=== PATIENT | male | born 1960 | race Caucasian/White ===

== ENCOUNTER 2017-12-04 10:32 | Outpatient (CLI) | payer OTHER | END 2017-12-04 10:33 | disposition home or self-care (01) | LOC: CTENTCT 10:32 | PROVIDERS: ATTEND Specialist | DX: J32.9 Chronic sinusitis, unspecified (principal) | CPT/HCPCS: 70486 ==

== ENCOUNTER → 2018-01-28 | Day surgery (SDC) | payer OTHER ==
[~2018-01-28] MED LIST: Bacitracin Zinc Ointment 30 gm TUBE ONE; Fentanyl 100 MCG/2 ML VIAL ONE; HYDROcodone/Acetaminophen 5/325 mg Tablet ONE; Lidocaine 1% w/Epinephrine 1:100K 30 ML VIAL ONE; Midazolam HCl 2 mg/2 ml Vial ONE; Oxymetazoline HCl 0.05% ( 15 ML ) ONE; Scopolamine 1.5 mg/72 hour Patch ONE
--- NOTE | 2018-01-28 15:57 | OP ---
PREOPERATIVE DIAGNOSES: Chronic sinusitis, chronic sphenoid sinusitis, nasal polyposis, hypertrophic inferior turbinates, and deviated septum. POSTOPERATIVE DIAGNOSES: Chronic sinusitis, chronic sphenoid sinusitis, nasal polyposis, hypertrophi c inferior turbinates, and deviated septum. PROCEDURES PERFORMED: 1. Septoplasty. 2. Bilateral nasal endoscopy with maxillary antrostomy with removal of tissue. 3. Bilateral nasal endoscopy with total ethmoidectomy. 4. Bilateral nasal endoscopy with frontal sinusotomy. 5. Bilateral nasal endoscopy with sphenoidotomy with removal of tissue and stereotactic landmark mitchell ge guidance. PROCEDURE IN DETAIL: After consent was obtained, the patient was identified, brought to the operatin g room, and placed on the operating room table in the supine position. Consent was obtained, notifyi ng the patient of the possibility of additional infections, bleeding, brain injury, and eye/orbital i njury. The patient was placed on the operating room table, and general endotracheal anesthesia and intravenous access was obtained. The patient was then positioned, prepped and draped for endoscopic sinus surgery. Nasal preparation included trimming nasal vestibular hairs and spraying in topical Af rin. We then placed Afrin topical solution on nasal pledgets and strategically located them intranas ally. The perinasal mucosa was injected with 1% lidocaine with 1:100,000 epinephrine in the submucop erichondrial plane of the septum, lateral nasal wall, and anterior to the uncinate. The patient was then prepped and draped in a sterile fashion and positioned for endoscopic sinus surgery. (Endoscopic Sinus Surgery) With the 0-degree endoscope, the patient underwent systematic nasal endoscopy. There were no suspici ous internasal masses or lesions identified. We then focused our attention to the osteomeatal comple x region under the middle turbinate. (Jaquelin Bullosa) The jaquelin bullosa was identified and entered with a sickle blade. The lateral aspect of the jaquelin bullosa was meticulously resected while leaving the medial most aspect t o form the new middle turbinate. Attention was made not to violate the mucosa. The straight biting punches and micro-debrider were used to remove shrouds of mucosa and bony debris. (Maxillary Antrostomy) The uncinate was then identified and the extent of the uncinate was appreciated by out-fracturing the uncinate with the ball-tip probe. We then used the sickle blade to disarticulate the uncinate from the lateral nasal wall. This was then removed with straight biting and upbiting punches with the remaining shrouds of mucosa and bony septum removed with the micro-debr ider. The natural os of the maxillary sinus was then identified and enlarged with the maxillary punc hes and back biting forceps. (Total Ethmoidectomy) The anterior face of the ethmoid bulla was entered and with the micro-debrider, dissection continued posteriorly to the ground lamella. The limits of dissection inc luded the insertion of the middle turbinate, medial orbital wall, and base of skull. We similarly id entified the frontal recess and removed shrouds of bone and debris in that region to obtain patency i nto the agger nasi region and frontal recess. We then entered the ground lamella and its anteroinfer ior aspect and proceeded posteriorly, opening the posterior ethmoid air-cell system. Again, the limi ts of dissection included the base of skull and medial orbital wall. (Sphenoidotomy) The anterior face of the sphenoid was identified and entered in its extreme anteroinferior aspect. A sphenoid punch was then used to enlarge the sphenoidotomy and no injury to the optic nerve or internal carotid artery occurred. (Outfracture of the Inferior Turbinates) The inferior turbinates were visualized under endoscopic visualization and outfractured with the elevator. The inferolateral edge of the inferior turbinate was then cauterized along its length with the suction cautery without difficulty. (Outfracture & Cautery of the Inferior Turbinates) The inferior turbinates were visualized with a 0-degree endoscope and outfractured with a [place] elevator. The inferior medial aspect was cauterized with the electrocauter y. Hemostasis was obtained . After adequate airway was established, we turned our attention to the contralateral side and used a similar procedure. Again, a [place] elevator was used to outfracture inf erior turbinates under endoscopic visualization. With a suction cautery, the free inferior medial as pect was cauterized under direct visualization along the length of the inferior turbinate. (Septoplasty) After local anesthesia was infiltrated into the submucoperichondrial plane, a standard Merrill incisi on was made with a #15 blade down to the level of the septal cartilage. The caudal elevator was used to elevate the mucoperichondrium from the underlying cartilage. We then proceeded beyond the bony c artilaginous junction and elevated the bony periosteum as well. Great attention was paid to the spur to prevent rent formation in the septal flap. A transcartilaginous incision was then made, while pre serving an adequate dorsal and caudal cartilaginous strut for tip support. The deformed cartilage wa s removed and disarticulated from the bony cartilaginous junction and maxillary crest. This was plac ed in saline and would later be crushed and returned to the mucoperichondrial envelope. We then elev ated the contralateral periosteum from the bony cartilaginous region and removed the deformed portion s of the bone and bony spurs. The cartilage was then crushed and placed back into the mucoperichondr ial envelope and the mucosa was re-approximated with a quilting stitch composed of rapidly absorbent gut suture. The Merrill incision was also closed with interrupted gut suture. At the completion of the case, Zamudio splints were placed and suture secured to the caudal septum. At this point, we then turned our attention to the contralateral side and proceeded with endoscopic sinus surgery. At the completion of the case, Rice keel splints were placed in the ethmoid cavities after the ethmoidectomy. There were no complications. The patient tolerated the procedure well and was discharged to the recovery room in stable condition prior to return to the preoperative Day Stay with ultimate discharge home. Prescriptions for pain medication and antibiotics were provid ed. The patient received intramuscular Depo-Medrol during the case.
== END ==
LOC: SDC 11:31
PROVIDERS: ATTEND Specialist
PROC: 09BS8ZZ Excision of Right Frontal Sinus, Via Natural or Artificial Opening Endoscopic (ICD-10-PCS; principal; 2018-01-28)
PROC: 09TV8ZZ Resection of Left Ethmoid Sinus, Via Natural or Artificial Opening Endoscopic (ICD-10-PCS; principal; 2018-01-28)
PROC: 09SL8ZZ Reposition Nasal Turbinate, Via Natural or Artificial Opening Endoscopic (ICD-10-PCS; principal; 2018-01-28)
PROC: 09TL8ZZ Resection of Nasal Turbinate, Via Natural or Artificial Opening Endoscopic (ICD-10-PCS; principal; 2018-01-28)
PROC: 09SM0ZZ Reposition Nasal Septum, Open Approach (ICD-10-PCS; principal; 2018-01-28)
PROC: 099R8ZZ Drainage of Left Maxillary Sinus, Via Natural or Artificial Opening Endoscopic (ICD-10-PCS; principal; 2018-01-28)
PROC: 09BX8ZZ Excision of Left Sphenoid Sinus, Via Natural or Artificial Opening Endoscopic (ICD-10-PCS; principal; 2018-01-28)
PROC: 09TU8ZZ Resection of Right Ethmoid Sinus, Via Natural or Artificial Opening Endoscopic (ICD-10-PCS; principal; 2018-01-28)
PROC: 09BW8ZZ Excision of Right Sphenoid Sinus, Via Natural or Artificial Opening Endoscopic (ICD-10-PCS; principal; 2018-01-28)
PROC: 09BT8ZZ Excision of Left Frontal Sinus, Via Natural or Artificial Opening Endoscopic (ICD-10-PCS; principal; 2018-01-28)
PROC: 099Q8ZZ Drainage of Right Maxillary Sinus, Via Natural or Artificial Opening Endoscopic (ICD-10-PCS; principal; 2018-01-28)
DX: J32.3 Chronic sphenoidal sinusitis (principal); J33.9 Nasal polyp, unspecified; J34.3 Hypertrophy of nasal turbinates; J34.2 Deviated nasal septum; J31.0 Chronic rhinitis; Z79.51 Long term (current) use of inhaled steroids; Z79.82 Long term (current) use of aspirin; Z79.2 Long term (current) use of antibiotics; Z79.899 Other long term (current) drug therapy
CPT/HCPCS: 93005; 93010; J2001; J2250; J3010

== ENCOUNTER 2021-04-29 16:19 | Outpatient (CLI) | payer OTHER | END 2021-04-29 16:20 | disposition home or self-care (01) | LOC: LABBT 16:19 | PROVIDERS: ATTEND Urology | DX: Z01.818 Encounter for other preprocedural examination (principal); Z20.822 Contact with and (suspected) exposure to COVID-19 | CPT/HCPCS: 80048; 81001; 85027; 85610; 85730; 86850; 86900; 86901; 87086; 93005; 93010; U0003; U0005 ==

== ENCOUNTER 2021-05-02 07:38 | Day surgery (SDC) | payer OTHER ==
[2021-04-29 17:31] LABS: Hemoglobin 14.9 g/dL (13.5-17.5); Mean Corpuscular HGB CONC 32.7 g/dL (32.0-36.0); Mean Corpuscular Hemoglobin 28.3 pg (27.0-33.0); Mean Corpuscular Volume 86.5 fl (81.2-95.1); Mean Platelet Volume 10.4 fl (7.4-10.4); Platelet Count 172 10x3/uL (150-450); RBC Distribution Width 13.6 % (11.5-14.5); Red Blood Cell (RBC) Count 5.26 10x6/uL (4.32-5.72); White Blood Cell (WBC) Count 5.5 10x3/uL (3.5-10.5)
[2021-04-29 17:36] LABS: Bilirubin Neg (Negative); Blood, Urine 250 (Negative); Clarity Cloudy (Clear); Glucose, Urine (Dipstick) Normal (Negative); Ketone, Urine Negative (Negative); Leukocyte Negative (Negative); Nitrite Negative (Negative); Protein, Urine (Dipstick) 30 mg/dl (Neg-Trace); Specific Gravity, Urine 1.025 (1.002-1.036); Urobilinogen Normal mg/dL (Less than 2)
[2021-04-29 19:10] LABS: INR-International Normal Ratio 0.9; PTT 22.9 sec (22.0-33.0); Prothrombin Time 10.4 sec (9.5-12.1)
[2021-04-29 19:12] LABS: Anion Gap 13 mmol/L (10-20); BUN (Urea Nitrogen) 26 mg/dL (8.4-25.7); Calc. Creatinine Clearance 0 mL/min (70-130); Calcium 10.1 mg/dL (7.8-10.44); Carbon Dioxide 25 mmol/L (23-31); Chloride 108 mmol/L (98-107); Glucose 82 mg/dL (80-115); Potassium 4.1 mmol/L (3.5-5.1); Sodium 142 mmol/L (136-145)
[2021-04-29 19:38] LABS: RBC/HPF 21-50 HPF (0-3)
[2021-04-29 19:39] LABS: Mucous/LPF 2+ LPF (<2+); Squamous Epithelial 0-3 HPF (0-3)
[2021-04-29 19:40] LABS: Bacteria/HPF Rare-Few HPF (None Seen)
[2021-04-30 09:01] LABS: SARS-CoV-2 PCR by NAA Not Detected (NotDetected)
[2021-05-01 10:33] VITALS: BMI 25.1
[2021-05-02] MEDS ORDERED: Gentamicin Sulfate 80 MG in Premix Bag 1 BAG IVPB SCH (08:45)
[2021-05-02] MEDS ORDERED: Scopolamine 1.5 mg/72 hour Patch ONE (09:21)
[2021-05-02] MEDS ORDERED: Fentanyl 100 MCG/2 ML VIAL ONE ×8 (10:49→19:06)
[2021-05-02] MEDS ORDERED: Midazolam HCl 2 mg/2 ml Vial ONE (14:20)
[2021-05-02] MEDS ORDERED: Lidocaine 1% PF 5 ML VIAL ONE (14:48)
[2021-05-02] MEDS ORDERED: Rocuronium Bromide 10 MG/ML (10ML VIAL) ONE (14:48)
[2021-05-02] MEDS ORDERED: Ondansetron PF 4 MG/2 ML Vial ONE ×2 (14:48→18:23)
[2021-05-02] MEDS ORDERED: Glycopyrrolate 0.2 MG/ML 5 ML SYRINGE ONE (14:48)
[2021-05-02] MEDS ORDERED: ePHEDrine 50 MG/ML VIAL ONE (14:48)
[2021-05-02] MEDS ORDERED: Dexamethasone 20 MG/5 ML VIAL ONE (14:48)
[2021-05-02] MEDS ORDERED: PROPOFOL 200 MG/20 ML VIAL ONE (14:48)
[2021-05-02] MEDS ORDERED: Bupivacaine 0.25% HCL 30 ML VIAL ONE (14:56)
[2021-05-02] MEDS ORDERED: Iothalamate Meglumine 60% 50 ML VIAL FS ONE ×2 (15:34→15:55)
[2021-05-02] MEDS ORDERED: SUGAMMADEX SODIUM 200 MG/2 ML VIAL ONE (15:37)
[2021-05-02] MEDS ORDERED: Phenazopyridine HCl 100 MG TAB ONE (17:44)
[2021-05-02] MEDS ORDERED: Meperidine HCl/PF 25 MG/ML VIAL ONE (18:01)
[2021-05-02] MEDS ORDERED: Albuterol Sulfate 1.25 MG/3 ML NEB ONE (18:44)
[2021-05-02] MEDS ORDERED: Metoclopramide HCl 10 MG/2 ML VIAL ONE (19:13)
== END 2021-05-02 20:25 | disposition home or self-care (01) ==
LOC: SDC 07:38
PROVIDERS: ATTEND Urology
PROC: 0TJ53ZZ Inspection of Kidney, Percutaneous Approach (ICD-10-PCS; principal; 2021-05-02)
PROC: BT1FZZZ Fluoroscopy of Left Kidney, Ureter and Bladder (ICD-10-PCS; principal; 2021-05-02)
DX: N20.0 Calculus of kidney (principal); R35.1 Nocturia; D23.9 Other benign neoplasm of skin, unspecified; K40.90 Unilateral inguinal hernia, without obstruction or gangrene, not specified as recurrent; Z53.8 Procedure and treatment not carried out for other reasons; Z79.82 Long term (current) use of aspirin; Z79.899 Other long term (current) drug therapy; Z87.891 Personal history of nicotine dependence
CPT/HCPCS: 50430; 50437; 76000; 80048; 81001; 85027; 85610; 85730; 86850; 86900; 86901; 87086; J0690; J1100; J1580; J2175; J2250; J2405; J2704; J2765; J3010; J3490; Q9961; S0020; U0003; U0005

== ENCOUNTER 2021-05-20 12:43 | Outpatient (CLI) | payer OTHER ==
[2021-05-20 14:34] LABS: INR-International Normal Ratio 0.9; PTT 23.9 sec (22.0-33.0); Prothrombin Time 10.5 sec (9.5-12.1)
[2021-05-20 14:36] LABS: Hemoglobin 15.3 g/dL (13.5-17.5); Mean Corpuscular HGB CONC 34.2 g/dL (32.0-36.0); Mean Corpuscular Hemoglobin 28.9 pg (27.0-33.0); Mean Corpuscular Volume 84.5 fl (81.2-95.1); Mean Platelet Volume 10.1 fl (7.4-10.4); Platelet Count 178 10x3/uL (150-450); RBC Distribution Width 13.1 % (11.5-14.5); White Blood Cell (WBC) Count 5.9 10x3/uL (3.5-10.5)
[2021-05-20 14:37] LABS: Anion Gap 12 mmol/L (10-20); BUN (Urea Nitrogen) 18 mg/dL (8.4-25.7); Calc. Creatinine Clearance 0 mL/min (70-130); Calcium 9.8 mg/dL (7.8-10.44); Carbon Dioxide 27 mmol/L (23-31); Chloride 106 mmol/L (98-107); Glucose 94 mg/dL (80-115); Potassium 4.2 mmol/L (3.5-5.1); Sodium 141 mmol/L (136-145)
[2021-05-20 14:56] LABS: Bilirubin Neg (Negative); Blood, Urine 150 (Negative); Clarity Clear (Clear); Glucose, Urine (Dipstick) Normal (Negative); Ketone, Urine Negative (Negative); Leukocyte Negative (Negative); Nitrite Negative (Negative); Protein, Urine (Dipstick) 15 mg/dl (Neg-Trace); Specific Gravity, Urine 1.025 (1.002-1.036); Urobilinogen Normal mg/dL (Less than 2)
[2021-05-20 15:19] LABS: WBC/HPF 0-3 HPF (0-3)
[2021-05-20 15:20] LABS: Bacteria/HPF Rare-Few HPF (None Seen); Mucous/LPF Few LPF (<2+); Squamous Epithelial None Seen HPF (0-3)
[2021-05-21 14:36] LABS: SARS-CoV-2 PCR by NAA Not Detected (NotDetected)
== END 2021-05-20 12:44 | disposition home or self-care (01) ==
LOC: LABBT 12:43
PROVIDERS: ATTEND Family Medicine
DX: Z01.812 Encounter for preprocedural laboratory examination (principal); N20.0 Calculus of kidney; Z20.822 Contact with and (suspected) exposure to COVID-19
CPT/HCPCS: 80048; 81001; 85027; 85610; 85730; 87086; U0003; U0005

== ENCOUNTER 2021-05-23 06:39 | Day surgery (SDC) | payer OTHER ==
[2021-05-22 11:55] VITALS: BMI 25.1
[2021-05-23] MEDS ORDERED: Levofloxacin 500 mg/D5W 100 ml Premix Bag ONE (07:05)
[2021-05-23] MEDS ORDERED: Scopolamine 1.5 mg/72 hour Patch ONE (08:10)
[2021-05-23] MEDS ORDERED: Fentanyl 100 MCG/2 ML VIAL ONE ×3 (08:10→13:02)
[2021-05-23] MEDS ORDERED: Iothalamate Meglumine 60% 50 ML VIAL FS ONE (08:48)
[2021-05-23] MEDS ORDERED: B & O 30 MG SUPP ONE (08:48)
[2021-05-23] MEDS ORDERED: PROPOFOL 200 MG/20 ML VIAL ONE (11:00)
[2021-05-23] MEDS ORDERED: Rocuronium Bromide 10 MG/ML (10ML VIAL) ONE (11:00)
[2021-05-23] MEDS ORDERED: Ondansetron PF 4 MG/2 ML Vial ONE (11:00)
[2021-05-23] MEDS ORDERED: PHENYLEPHRINE-NS 100 MCG/ML 10 ML SYRINGE ONE (11:00)
[2021-05-23] MEDS ORDERED: Lidocaine 1% PF 5 ML VIAL ONE (11:00)
[2021-05-23] MEDS ORDERED: Dexamethasone 20 MG/5 ML VIAL ONE (11:00)
[2021-05-23] MEDS ORDERED: Midazolam HCl 2 mg/2 ml Vial ONE (11:07)
[2021-05-23] MEDS ORDERED: Phenazopyridine HCl 100 MG TAB ONE (13:33)
[2021-05-23] MEDS ORDERED: Oxybutynin 5 MG TAB ONE (13:33)
[2021-05-23] MEDS ORDERED: HYDROcodone/Acetaminophen 5/325 mg Tablet ONE ×2 (14:12→15:22)
[2021-05-23] MEDS ORDERED: Ondansetron ODT 4 MG TAB ONE (14:12)
== END 2021-05-23 15:45 | disposition home or self-care (01) ==
LOC: SDC 06:39
PROVIDERS: ATTEND Urology
PROC: 0TC48ZZ Extirpation of Matter from Left Kidney Pelvis, Via Natural or Artificial Opening Endoscopic (ICD-10-PCS; principal; 2021-05-23)
PROC: 0TC78ZZ Extirpation of Matter from Left Ureter, Via Natural or Artificial Opening Endoscopic (ICD-10-PCS; principal; 2021-05-23)
PROC: 0T778DZ Dilation of Left Ureter with Intraluminal Device, Via Natural or Artificial Opening Endoscopic (ICD-10-PCS; principal; 2021-05-23)
DX: N20.2 Calculus of kidney with calculus of ureter (principal); Z98.890 Other specified postprocedural states; Z79.82 Long term (current) use of aspirin; Z79.899 Other long term (current) drug therapy; Z87.891 Personal history of nicotine dependence
CPT/HCPCS: 76000; 82365; 88300; C2617; J1100; J1956; J2250; J2405; J2704; J3010; Q0162; Q9961-U8

== ENCOUNTER 2021-06-27 12:41 | Outpatient (CLI) | payer OTHER ==
[2021-06-27 13:47] LABS: Anion Gap 11 mmol/L (10-20); BUN (Urea Nitrogen) 17 mg/dL (8.4-25.7); Calc. Creatinine Clearance 0 mL/min (70-130); Calcium 9.5 mg/dL (7.8-10.44); Carbon Dioxide 27 mmol/L (23-31); Chloride 106 mmol/L (98-107); Glucose 96 mg/dL (80-115); Potassium 4.8 mmol/L (3.5-5.1); Sodium 139 mmol/L (136-145)
[2021-06-27 14:06] LABS: #Eosinphils 0.1 10x3/uL (0.0-0.5); #Monocytes 0.4 10x3/uL (0.0-1.1); #Neutrophils 1.9 10x3/uL (1.5-8.4); %Basophils 0.5 % (0.0-2.0); %Eosinophils 2.1 % (0.0-6.0); %Lymphocytes 37.1 % (18.0-47.0); %Monocytes 10.6 % (0.0-10.0); %Neutrophils 49.4 % (40.0-75.0); Hemoglobin 14.5 g/dL (13.5-17.5); Mean Corpuscular HGB CONC 32.7 g/dL (32.0-36.0); Mean Corpuscular Hemoglobin 27.8 pg (27.0-33.0); Mean Platelet Volume 10.3 fl (7.4-10.4); Platelet Count 159 10x3/uL (150-450); Red Blood Cell (RBC) Count 5.21 10x6/uL (4.32-5.72); White Blood Cell (WBC) Count 3.9 10x3/uL (3.5-10.5)
[2021-06-28 12:04] LABS: SARS-CoV-2 PCR by NAA Not Detected (NotDetected)
== END 2021-06-27 12:42 | disposition home or self-care (01) ==
LOC: LABBT 12:41
PROVIDERS: ATTEND Specialist
DX: Z01.818 Encounter for other preprocedural examination (principal); N20.1 Calculus of ureter; Z20.822 Contact with and (suspected) exposure to COVID-19
CPT/HCPCS: 80048; 85025; 93005; 93010; U0003; U0005

== ENCOUNTER 2021-07-02 08:52 | Day surgery (SDC) | payer OTHER ==
[2021-07-01 10:38] VITALS: BMI 24.7
[2021-07-02] MEDS ORDERED: Acetaminophen 500 MG TAB ONE (09:05)
[2021-07-02] MEDS ORDERED: ceFAZolin 2 GM/DEX 5% 100 ML BAG ONE (09:05)
[2021-07-02] MEDS ORDERED: Ketorolac Tromethamine 30 MG/ML VIAL ONE (09:05)
[2021-07-02] MEDS ORDERED: Scopolamine 1.5 mg/72 hour Patch ONE (09:15)
[2021-07-02] MEDS ORDERED: Midazolam HCl 2 mg/2 ml Vial ONE ×2 (11:28→12:13)
[2021-07-02] MEDS ORDERED: HYDROmorphone 0.5 MG/0.5 ML SYRINGE ONE (12:13)
[2021-07-02] MEDS ORDERED: Fentanyl 100 MCG/2 ML VIAL ONE ×2 (12:13→14:43)
[2021-07-02] MEDS ORDERED: Lidocaine 2% Jelly 5 ML TUBE ONE (12:13)
[2021-07-02] MEDS ORDERED: Bupivacaine 0.25% HCL 30 ML VIAL ONE (12:15)
[2021-07-02] MEDS ORDERED: Lidocaine 1% w/Epinephrine 1:100K 20 ML VIAL ONE (12:15)
[2021-07-02] MEDS ORDERED: PHENYLEPHRINE-NS 100 MCG/ML 10 ML SYRINGE ONE (12:37)
[2021-07-02] MEDS ORDERED: Rocuronium Bromide 10 MG/ML (10ML VIAL) ONE (12:37)
[2021-07-02] MEDS ORDERED: Dexamethasone 20 MG/5 ML VIAL ONE (12:37)
[2021-07-02] MEDS ORDERED: Glycopyrrolate 0.2 MG/ML 5 ML SYRINGE ONE (12:37)
[2021-07-02] MEDS ORDERED: Lidocaine 1% PF 5 ML VIAL ONE (12:37)
[2021-07-02] MEDS ORDERED: PROPOFOL 200 MG/20 ML VIAL ONE (12:37)
[2021-07-02] MEDS ORDERED: Ondansetron PF 4 MG/2 ML Vial ONE (12:37)
[2021-07-02] MEDS ORDERED: HYDROcodone/Acetaminophen 5/325 mg Tablet ONE (16:51)
== END 2021-07-02 17:21 | disposition home or self-care (01) ==
LOC: SDC 08:52
PROVIDERS: ATTEND Specialist
PROC: 0YUA4JZ Supplement Bilateral Inguinal Region with Synthetic Substitute, Percutaneous Endoscopic Approach (ICD-10-PCS; principal; 2021-07-02)
DX: K40.20 Bilateral inguinal hernia, without obstruction or gangrene, not specified as recurrent (principal); Z87.891 Personal history of nicotine dependence; Z79.899 Other long term (current) drug therapy
CPT/HCPCS: C1781; J1100; J1170; J1885; J2250; J2405; J2704; J3010; S0020

== ENCOUNTER 2021-07-19 14:10 | Outpatient (CLI) | payer OTHER | END 2021-07-19 14:11 | disposition home or self-care (01) | LOC: BICULT 14:10 | PROVIDERS: ATTEND Urology | DX: N20.0 Calculus of kidney (principal) | CPT/HCPCS: 76770 ==